=== PATIENT | female | born 1980 | race Caucasian/White ===

== ENCOUNTER → 2018-12-11 06:38 | Outpatient (CLI) | payer OTHER, SELFPAY ==
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
--- NOTE | 2018-12-14 14:47 | EEG ---
- Electroencephalogram Date of service 12/11/2018 History EEG is being done in this 38 yr F to rule out seizures EEG Description: This is an 18 channel EEG with 10-20 lead placement system. Bipolar montages, and Referential montages were reviewed. Photic stimulation and Hyperventilation were performed. The posterior dominant rhythm is 9 HZ synchronous, symmetric, reacting to eye opening and closing. Photo stimulation elicited normal driving response but no abnormal photoparoxysmal response, Hyperventilation did not elicit any abnormal photoparoxysmal response. Sleep was identified. There is no abnormal background slowing noted. There was no epileptiform discharges or electrographic seizures noted during this recording. EEG Interpretation This is a normal awake and asleep EEG. There is no epileptiform discharges or electrographic seizures noted during the record.
== END ==
PROVIDERS: Family Provider Nurse Practitioner; PCP Nurse Practitioner; Referring Provider Nurse Practitioner; Visit Provider Nurse Practitioner
DX: S09.90XA Unspecified injury of head, initial encounter (principal); X58.XXXA Exposure to other specified factors, initial encounter; Y93.9 Activity, unspecified; Y92.9 Unspecified place or not applicable; Y99.9 Unspecified external cause status
CPT/HCPCS: 70450; 95819

== ENCOUNTER → 2019-01-07 12:42 | Outpatient (CLI) | payer OTHER, SELFPAY ==
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
== END ==
PROVIDERS: Family Provider Nurse Practitioner; PCP Nurse Practitioner; Referring Provider Psychiatry & Neurology Neurology; Visit Provider Psychiatry & Neurology Neurology
DX: M54.2 Cervicalgia (principal)
CPT/HCPCS: 72052

== ENCOUNTER → 2019-01-20 15:47 | Outpatient (CLI) | payer OTHER, SELFPAY ==
--- NOTE | 2019-01-20 15:51 | CT_ITS ---
STUDY: CTA OF THE BRAIN REASON FOR EXAM: Female, 39 years old. Vertigo and memory loss RADIATION DOSAGE (If Supplied By Facility): CTDIvol = ( 26.01 ) mGy, DLP = ( 1129.69 ) mGycm TECHNIQUE: CT angiography was performed with a multi-detector CT scanner. Data acquisition was obtained from the skull base through the vertex following intravenous administration of 75mL IV Isovue 370. MIP images were reconstructed from the axial data set. Post-processing of the angiographic images was performed, with multiplanar reformation and 3D reconstruction. Individualized dose optimization techniques were used for this CT. COMPARISON: None. FINDINGS: Normal bilateral petrous carotid arteries. Normal right cavernous carotid artery with a normal supraclinoid bifurcation. Normal left cavernous carotid artery with a normal supraclinoid bifurcation. Normal right A1 segments of the anterior cerebral artery. Normal left A1 segments of the anterior cerebral artery. Normal intact anterior communicating artery (ACOM). Normal bilateral A2 segments of the anterior cerebral arteries. Normal right M1 and M2 segments of the middle cerebral arteries, with a normal M1 bifurcation. Normal left M1 and M2 segments of the middle cerebral arteries, with a normal M1 bifurcation. Posterior communicating arteries are not visualized consistent with normal variant Normal bilateral vertebral arteries. Normal basilar artery with a normal basilar bifurcation. The visualized bilateral superior cerebellar (SCA) arteries are normal. Normal bilateral P1, P2 and visualized P3 segments of the posterior cerebral arteries. There is no demonstrated aneurysm of the [place]. There is no demonstrated abnormality of the visualized brain. CT/CTA Head W/WO Contrast IMPRESSION: Normal [place] without a demonstrated aneurysm or hemodynamically significant stenosis. Electronically Signed: Jose Fairbanks MD at 16:58 EDT , Service support ,
== END ==
PROVIDERS: Family Provider Nurse Practitioner; PCP Nurse Practitioner; Referring Provider Psychiatry & Neurology Neurology; Visit Provider Psychiatry & Neurology Neurology
DX: R42 Dizziness and giddiness (principal)
CPT/HCPCS: 70496; Q9967

== ENCOUNTER 2019-01-27 14:00 | Outpatient (RCR) | payer OTHER, SELFPAY ==
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
--- NOTE | 2019-03-23 18:32 | HP.PTDCNRP_ITS ---
HP - Discharge Summary (1) - Patient Information JACQUES JENSEN was seen in my office for initial evaluation on 01/19/19. The following Plan of Care was established for this patient: Initial Frequency: 1-2x /Week Initial Duration: 4 Weeks - Anticipated Interventions Patient/Client Instruction: Educate patient on: Condition, Plan of Care For the Purpose of:: To increase tolerance to activity/condition/position, To i mprove ability of physical actions for home/community/work/leisure Therapeutic Exercise to Include: Strength training, Postural training, Passive ROM, Active ROM For the Purpose of:: To increase tolerance to activity/condition/position, To improve ability of physical actions for home/community/work/leisure Manual Therapy Techniques to Include: Soft tissue mobilization For the Purpose of:: To increase tolerance to activity/condition/position This patient was last seen in our office 01/27/19. Pertinent comments regarding their Physical therapy will appear below: Pt seen two visits and reportedly 50% improved. She cancelled her next adn reest of her visits and neglected to reschedule. at this point, it has been nearly two months adn I will discontinue due to nonattendance. At this point I will be discontinuing this patient from physical therapy. I would be happy to see this patient again in the future if found appropriate by the physician. Thank you! Herbert Martinez, DPT, OCS, CSCS
== END 2019-01-27 19:00 | disposition home or self-care (01) ==
LOC: PT 14:00
PROVIDERS: Family Provider Nurse Practitioner; PCP Nurse Practitioner; Visit Provider Psychiatry & Neurology Neurology
DX: M54.2 Cervicalgia (principal); R42 Dizziness and giddiness
CPT/HCPCS: 97110; 97162; 97530

== ENCOUNTER → 2019-02-23 14:38 | Outpatient (CLI) | payer OTHER, SELFPAY ==
--- NOTE | 2019-02-23 14:41 | US_ITS ---
STUDY: ULTRASOUND OF THE FEMALE PELVIS - COMPLETE REASON FOR EXAM: Female, 39 years old. Elevated CA 125. LMP: January 22, 2019. TECHNIQUE: Transabdominal and Transvaginal TECHNICAL QUALITY: Adequate. COMPARISON: None. FINDINGS: The uterus is anteverted and is in a midline position. The uterus measures 8.6 x 5.4 x 4.3 cm. There is a Nabothian cyst of the cervix. The endometrium measures 16 mm in thickness, and is hyperechoic. There is no demonstrated endometrial mass. There is a 1.5 x 1.4 x 0.7 predominantly cystic mass in the anterior fundal wall. Question necrotic fibroid. I.U.D. - The patient does not have an I.U.D. 3.8 x 2.7 x 1.5 The right ovary measures 3 cm. There is no right ovarian cyst or ovarian mass. There is no visualized right adnexal mass or complex lesion. There is normal arterial and normal venous vascularity. The left ovary is visualized. The left ovary measures 3.8 x 2.6 x 2.2 cm. There are multiple follicles of the left ovary without a dominant cyst. There is no visualized left adnexal mass or complex lesion. There is prominent venous structures in the left adnexa. Question pelvic congestion. There is no fluid in the cul-de-sac. Urinary bladder demonstrates a prevoid volume of 147 cm and is grossly unremarkable. US/Pelvic (Non ) IMPRESSION: 1. Cystic structure in the anterior fundal wall. Question necrotic fibroid. 2. Normal ovaries. 3. Prominent venous structures in the left adnexa. Question vascular congestion. Electronically Signed: Ole Connolly DO at 19:40 EDT Tel [phone], Service support ,
--- NOTE | 2019-02-23 14:41 | US_ITS ---
STUDY: ABDOMINAL ULTRASOUND REASON FOR EXAM: Female, 39 years old. Liver lesions seen on CT from outside facility. Elevated CEA 125. TECHNIQUE: Transabdominal ultrasound was performed with real-time and static martinez scale imaging. TECHNICAL QUALITY: Adequate. COMPARISON: None. FINDINGS: Liver: The liver measures 14.2 cm. There is normal echogenicity of the liver. The bile ducts are within normal limits. There is hepatic color flow. The direction of portal flow is hepatopetal. There is no demonstrated mass lesion. Gallbladder: Normal distended gallbladder. The gallbladder wall measures 2.2 mm. There is a negative sonographic Carpio's sign. There is no pericholecystic fluid. There are no gallstones. Common Bile Duct (C.B.D.): The common bile duct measures 3.4 mm. Pancreas: Normal size of the head, body and tail of the pancreas. There is normal echogenicity of the pancreas. There is no demonstrated pancreatic mass or cyst. Spleen: Normal size of the spleen. The spleen measures 9.7 cm. Right Kidney: Normal size of the right kidney. The right kidney measures 10.5 cm. Normal renal cortex. The right cortex measures 1.3 cm. There is no demonstrated renal mass or cyst. There is no right hydronephrosis. Left Kidney: Normal size of the left kidney. The left kidney measures 11 point cm. Normal renal cortex. The left cortex measures 1.6 cm. There is no demonstrated renal mass or cyst. There is no left hydronephrosis. Aorta: No abdominal aortic aneurysm. I.V.C.: The IVC is patent. There is no ascites. US/Abdomen Complete IMPRESSION: 1. No visualized intrahepatic lesions. 2. Normal abdominal ultrasound. Electronically Signed: Ole Connolly DO at 16:27 EDT Tel [phone], Service support ,
--- NOTE | 2019-02-23 18:32 | US_ITS ---
STUDY: ULTRASOUND OF THE FEMALE PELVIS - COMPLETE REASON FOR EXAM: Female, 39 years old. Elevated CA 125. LMP: January 22, 2019. TECHNIQUE: Transabdominal and Transvaginal TECHNICAL QUALITY: Adequate. COMPARISON: None. FINDINGS: The uterus is anteverted and is in a midline position. The uterus measures 8.6 x 5.4 x 4.3 cm. There is a Nabothian cyst of the cervix. The endometrium measures 16 mm in thickness, and is hyperechoic. There is no demonstrated endometrial mass. There is a 1.5 x 1.4 x 0.7 predominantly cystic mass in the anterior fundal wall. Question necrotic fibroid. I.U.D. - The patient does not have an I.U.D. 3.8 x 2.7 x 1.5 The right ovary measures 3 cm. There is no right ovarian cyst or ovarian mass. There is no visualized right adnexal mass or complex lesion. There is normal arterial and normal venous vascularity. The left ovary is visualized. The left ovary measures 3.8 x 2.6 x 2.2 cm. There are multiple follicles of the left ovary without a dominant cyst. There is no visualized left adnexal mass or complex lesion. There is prominent venous structures in the left adnexa. Question pelvic congestion. There is no fluid in the cul-de-sac. Urinary bladder demonstrates a prevoid volume of 147 cm and is grossly unremarkable. US/Transvaginal Non- IMPRESSION: 1. Cystic structure in the anterior fundal wall. Question necrotic fibroid. 2. Normal ovaries. 3. Prominent venous structures in the left adnexa. Question vascular congestion. Electronically Signed: Ole Connolly DO at 19:40 EDT Tel [phone], Service support ,
== END ==
PROVIDERS: Family Provider Nurse Practitioner; PCP Nurse Practitioner; Referring Provider Nurse Practitioner; Visit Provider Nurse Practitioner
DX: R97.1 Elevated cancer antigen 125 [CA 125] (principal)
CPT/HCPCS: 76700; 76830; 76856; 93976

== ENCOUNTER → 2019-03-04 15:37 | Outpatient (CLI) | payer OTHER, SELFPAY ==
--- NOTE | 2019-03-04 15:39 | CT_ITS ---
STUDY: CT ABDOMEN AND PELVIS WITH CONTRAST REASON FOR EXAM: Female, 39 years old. ELEV CA ANTIGEN RADIATION DOSAGE (If Supplied By Facility): CTDIvol = ( 15.07 ) mGy, DLP = ( 613.69 ) mGycm TECHNIQUE: Transaxial images were obtained from the dome of the diaphragm to the symphysis pubis without oral contrast. Oral and amp;amp; IV Readi-CAT and amp;amp; 100mL Isovue-370 100 was administered. Sagittal and coronal images were reconstructed. Individualized dose optimization techniques were used for this CT. COMPARISON: None. FINDINGS: The visualized lung bases are unremarkable. The visualized portions of the heart are within normal limits. There are small hypoattenuation lesions in the liver largest measures 5 mm is near the dome in segment #8 image #11 most likely represent benign cysts. Normal gallbladder and extrahepatic biliary system. Normal spleen. Normal pancreas. Normal bilateral adrenal glands. Normal right kidney. Normal left kidney. Normal visualized stomach. Normal small intestine. Normal colon. There is non-visualization of the appendix. Normal abdominal aorta. Normal inferior vena cava. Normal retroperitoneum. Normal urinary bladder. There is a hypoattenuation lesion at the anterior aspect of uterus measures 1.6 cm most likely represent a fibroid. The ovaries are grossly normal in size. There is a small umbilical hernia containing fat. Normal osseous structures. CT/Abdomen/Pelvis WITH Contrast IMPRESSION: There is a hypoattenuation lesion at the anterior aspect of uterus measures 1.6 cm most likely represent a fibroid. The ovaries are grossly normal in size. There are small hypoattenuation lesions in the liver largest measures 5 mm is near the dome in segment #8 image #11 most likely represent benign cysts Electronically Signed: Fransico Vasquez, at 2:45 EDT Tel , Service support ,
== END ==
PROVIDERS: Family Provider Nurse Practitioner; PCP Nurse Practitioner; Referring Provider Nurse Practitioner; Visit Provider Nurse Practitioner
DX: R97.1 Elevated cancer antigen 125 [CA 125] (principal)
CPT/HCPCS: 74177; Q9967

== ENCOUNTER → 2019-03-29 08:21 | Outpatient (CLI) | payer OTHER, SELFPAY ==
--- NOTE | 2019-03-29 08:25 | RAD_ITS ---
STUDY: X-RAY CHEST REASON FOR EXAM: Female, 39 years old. Cough and illness x3 weeks TECHNIQUE: PA and lateral views of the chest. COMPARISON: None. FINDINGS: Joao bar is identified The lungs are clear and expanded. There is no demonstrated pleural abnormality. Normal size heart. Normal mediastinum and clayton. Normal visualized pulmonary arteries. Normal visualized aortic arch and descending thoracic aorta. Normal visualized thoracic spine. Normal visualized ribs, clavicles, and shoulders. There is no demonstrated abnormality of the visualized soft tissue structures of the upper abdomen. RAD/Chest PA and Lateral IMPRESSION: Normal x-ray examination of the chest. Electronically Signed: Ger Aviles DO at 9:02 EST Tel , Service support ,
== END ==
PROVIDERS: Family Provider Nurse Practitioner; PCP Nurse Practitioner; Referring Provider Nurse Practitioner; Visit Provider Nurse Practitioner
DX: R05 Cough (principal)
CPT/HCPCS: 71046

== ENCOUNTER 2020-05-23 08:00 | Outpatient (RCR) | payer OTHER, SELFPAY | END 2020-05-23 23:59 | LOC: IMMUN 08:00 | PROVIDERS: PCP Nurse Practitioner; Visit Provider Family Medicine | DX: Z23 Encounter for immunization (principal) | CPT/HCPCS: 0011A; 0012A; 91301 ==

== ENCOUNTER → 2020-10-27 15:45 | Outpatient (CLI) | payer OTHER, SELFPAY ==
--- NOTE | 2020-10-27 15:47 | RAD_ITS ---
STUDY: X-RAY CHEST REASON FOR EXAM: Female, 40 years old. COUGH TECHNIQUE: PA and lateral views of the chest. COMPARISON: OCTOBER 16, 2020 FINDINGS: Surgical clips are present in the left lower chest region. There is hyperinflation of the lungs consistent with chronic obstructive lung disease (COPD). No visualized consolidation. There is no demonstrated pleural abnormality. Normal size heart. Normal mediastinum and clayton. Normal visualized pulmonary arteries. Normal visualized aortic arch and descending thoracic aorta. There is a dextroscoliosis of the thoracic spine. Normal visualized ribs, clavicles, and shoulders. There is no demonstrated abnormality of the visualized soft tissue structures of the upper abdomen. RAD/Chest PA and Lateral IMPRESSION: COPD Electronically Signed: Nam Parker MD at 17:10 EDT , Service support ,
== END ==
LOC: MTRAD 15:46
PROVIDERS: PCP Nurse Practitioner; Referring Provider Internal Medicine; Visit Provider Internal Medicine
DX: R05 Cough (principal)
CPT/HCPCS: 71046

== ENCOUNTER → 2020-12-06 08:47 | Outpatient (CLI) | payer OTHER, SELFPAY ==
--- NOTE | 2020-12-06 08:51 | BI_ITS ---
MAMMOGRAPHY - BILATERAL DIAGNOSTIC REASON FOR EXAM: Female, 40 years old. LUMP PERTINENT HISTORY: Non-contributory. TECHNIQUE: Digital examination. Mediolateral oblique (MLO) and craniocaudad (CC) views of both breasts were obtained. CAD: COMPARISON: None. FINDINGS: Breast Composition: Dense There is an area of increased density noted involving the medial aspect of the right breast directly adherent to the right chest wall at the site of the palpable mass noted by the patient. This is best seen on the craniocaudal view and is difficult to visualize on the MLO view. Because of this density in the patient''s palpable mass lesion a targeted right breast ultrasound will be performed for additional evaluation. The left breast is normal. BI/DIAG MAMM W/CAD, BILAT IMPRESSION: Questionable masslike density noted in the superior medial aspect of the right breast site of the patient''s palpable abnormality and a targeted right breast ultrasound will be performed for further evaluation. ASSESSMENT CATEGORY: BIRADS Category 0: Incomplete. Need additional imaging evaluation. A letter regarding these results will be sent to the patient by the facility within 30 days. FOLLOW UP RECOMMENDATION: Ultrasound Recommended. (I) Approximately 10% of breast cancers are not detected by mammography. A normal mammogram should not delay biopsy of a clinically suspicious abnormality. Electronically Signed: Drew Henderson DO at 13:02 EDT Tel , Service support ,
--- NOTE | 2020-12-06 08:51 | US_ITS ---
STUDY: ULTRASOUND BREAST - RIGHT REASON FOR EXAM: Female, 40 years old. TECHNIQUE: Axial and longitudinal images of the RIGHT breast were performed with a high resolution ultrasound transducer. # OF IMAGES: [id number] COMPARISON: Recent mammogram obtained on 12/06/2020 FINDINGS: RIGHT Breast: There is a lesion in the superior medial quadrant. The lesion measures 2.4 x 2.0 x 1.5 cm in size. Clock notation: 1 o''clock position. Distance from nipple: 360 cm. This mass lesion in the right breast has a somewhat lobular contour and is solid and hypoechoic. This is of uncertain etiology and could represent a fibroadenoma, however, because it is a solid lobular nodular density underlying carcinoma cannot be completely excluded. For this reason, an ultrasound directed right breast biopsy is recommended for further evaluation. Incidentally noted is a small cyst measuring 1.2 x 0.8 x 0.6 cm in size at the 2 o''clock position of the deep right breast adjacent to the chest wall. This cyst has good through transmission and is anechoic. US/Breast Limited Unilateral IMPRESSION: A 2.4 x 2 x 1.5 cm solid lobular mass lesion is noted superior medial right breast of uncertain etiology. A fibroadenoma versus cancer or other diagnostic possibilities and an ultrasound directed right breast biopsy is recommended for further evaluation ASSESSMENT CATEGORY: BIRADS Category 4B: Moderate suspicion for malignancy. A letter regarding these results will be sent to the patient by the facility within 30 days. Electronically Signed: Drew Henderson DO at 12:56 EDT Tel , Service support ,
== END ==
PROVIDERS: PCP Nurse Practitioner; Referring Provider Nurse Practitioner; Visit Provider Nurse Practitioner
DX: N63.10 Unspecified lump in the right breast, unspecified quadrant (principal)
CPT/HCPCS: 76642; 77062; 77066; G0279

== ENCOUNTER → 2020-12-14 07:49 | Outpatient (CLI) | payer OTHER, SELFPAY ==
[2020-12-14 07:58] VITALS: BP 130/70; PULSE 80; RESP 16; TEMP 36.7; O2SAT 99; BMI 20.2
[2020-12-14 09:03] VITALS: BP 123/67; PULSE 82; RESP 16; TEMP 36.6; O2SAT 100
[2020-12-14 09:13] VITALS: BP 122/70; PULSE 72; RESP 16; TEMP 36.4; O2SAT 100
--- NOTE | 2020-12-14 12:30 | FLU_PTH ---
PATIENT: JACQUES JENSEN LOC: [facility] U#:[id number] AGE/SX: 45/F ROOM: RE12/14/[address]: Dr. Ramirez Goel MD : 1980 BED: DIS: SPEC #: [id number] RECD: 12/14/20 12:40 STATUS: JANEY RENash #: [id number] CARMELINA: 12/14/20 12:[address]: Ramirez Goel DEPT: CYTOLOGY RECD BY: Monik Moore ENTERED: 12/14/20 13:25 SP TYPE: Fluid OTHR DR: Georgie Rubio, DISPATCHER ELECTRIC POWER-C Tissues: Right breast, NOS Procedures: Special Stain Group II Surgery Specimen Level IV Cytospin Fluid HEADER OPERATION: Right breast PRE-OP DIAGNOSIS: Right breast lesion TISSUE SUBMITTED: Right breast 2 o?clock lesion DIAGNOSIS CYTOLOGY Fine needle aspiration, right breast lesion at 2 o?clock (cytospin and cell block): Negative for malignant cells. See comment. AM:nicole 12/15/2020 COMMENT Rare macrophages are present. Clinical correlation is suggested. CYTOLOGY STUDY Slides are reviewed. CYTOLOGY GROSS Received is 3 ml of hidalgo, cloudy fluid labeled with the patient's name and and designated per the requisition as right breast 2 o'clock lesion. Submitted for cytology preparation including cell block. / niocle 12/14/2020 TC:5 CPT: 76821, 08538
--- NOTE | 2020-12-14 12:30 | US_ITS ---
ULTRASOUND GUIDED CORE BIOPSY REASON FOR EXAM: Female, 40 years old. Right breast mass. COMPARISON: Comparison is made with prior ultrasound of the right breast dated 12/06/2020. TECHNIQUE: (All elements of maximal sterile barrier technique followed, including US elements as applicable) Multiple core biopsies of the 2.3 cm x 1.9 cm x 1.7 cm complex solid and cystic mass at the 2 o''clock position of the breast was performed by the surgeon. US/Cyst Puncture IMPRESSION: Ultrasound guided core biopsy of a mass in the RIGHT breast at the 2 o''clock position of the breast without complication. Electronically Signed: Nelson Stallings MD at 19:49 EDT , Service support ,
--- NOTE | 2020-12-14 14:07 | PCM.HP.BLA ---
History and Physical Surgery 10-year-old female with a palpable right breast mass. She has noted that for about 2 weeks. She denies any nipple discharge. Mammogram and ultrasound showed a 2.4 x 2 x 1.5 solid lobulated mass lesion in the superior medial right breast of uncertain etiology. Given the BI-RADS Category 4B. Past medical history significant for this fibrinogen anemia mitral valve disorder acute pericarditis Current medications Cytotec 200 mg tabs Allergies cryoprecipitate Physical exam HEENT: Normocephalic atraumatic Lungs: Clear to auscultation Cardiovascular: Regular rate and rhythm Breast palpable area of the right breast medial aspect identified. Assessment & Plan Assessment/Plan (1) Abnormal mammogram of right breast: PLAN: Plan will be for an ultrasound-guided needle core biopsy of this lesion.
--- NOTE | 2020-12-14 14:08 | OP.PCM_ITS ---
Problems Associated Problem List Diagnoses (1) Abnormal mammogram of right breast: Report of Operation Date of Procedure: 12/14/20 Pre-Operative Diagnosis: Abnormal mammogram right breast Post-Operative Diagnosis: Same Surgery/Procedure Performed:: Ultrasound-guided cyst aspiration of abnormal mammogram to right breast Surgeon: Ramirez Goel rail express clerk: None Type of Anesthesia: Local Description of Procedure: Patient was brought into the ultrasound unit. Right breast was ultrasound. Complex cyst was identified. Prepped the breast with chlorhexidine. I injected 1% lidocaine plain. Under ultrasound guidance I aspirated out a complex cyst completely the cyst completely disappeared. Contents of the cyst were sent for cytology. Sterile dressings were applied. Patient tolerated the procedure well. Admit VTE Documentation VTE Present on Admission: No VTE Mechan Device Prophylaxis: None VTE Pharm Prophylaxis ordered?: No Reason prophylaxis not ordered:: Treatment Not Indicated
== END ==
PROVIDERS: PCP Nurse Practitioner; Referring Provider Surgery; Visit Provider Surgery
DX: N63.12 Unspecified lump in the right breast, upper inner quadrant (principal); D68.2 Hereditary deficiency of other clotting factors
CPT/HCPCS: 19000; 36415; 36430; 76942; 86850; 86900; 86901; 86920; 86922; 86965; 88108; 88305; 88313; J7040; P9012; A4216

== ENCOUNTER 2021-08-02 08:50 | Outpatient (CLI) | payer OTHER, SELFPAY ==
--- NOTE | 2021-08-02 08:54 | US_ITS ---
STUDY: ABDOMINAL ULTRASOUND - RIGHT UPPER QUADRANT REASON FOR VISIT: Female, 41 years old LIVER LESION TECHNIQUE: Ultrasound evaluation of the right upper quadrant was performed with real-time and static martinez-scale imaging. TECHNICAL QUALITY: Adequate. COMPARISON: Comparison is made with prior study dated 02/23/2019. FINDINGS: Liver: The liver measures 16.9 cm. There is normal echogenicity of the liver. The bile ducts are within normal limits. There is hepatic color flow. The direction of portal flow is hepatopetal. There is an 8mm by 8mm by 8 mm cyst in the inferior aspect of the right lobe of the liver. Gallbladder: Normal distended gallbladder. The gallbladder wall measures 1.7 mm. There is a negative sonographic Carpio''s sign. There is no pericholecystic fluid. There are no gallstones. Common Bile Duct (C.B.D.): The common bile duct measures 4.0 mm. Pancreas: Normal size of the head, body and tail of the pancreas. There is normal echogenicity of the pancreas. There is no demonstrated pancreatic mass or cyst. Right Kidney: Normal size of the right kidney. The right kidney measures 11 cm x 4.8 cm x 4.9 cm. Normal renal cortex. The right cortex measures 1.3 cm. There is no demonstrated renal mass or cyst. There is no right hydronephrosis. US/Liver IMPRESSION: 8 mm x 8 mm x 8 mm cyst in the inferior aspect of the right lobe of the liver. Electronically Signed: Nelson Stallings MD at 10:11 EDT ,
--- NOTE | 2021-08-02 09:27 | ECHOD_ITS ---
Reason For Study: acute pericardial effusion, increased palps. Procedure This was a 2D Doppler, Color Flow transthoracic echocardiogram. Exam performed in department. Left Ventricle Normal LV size. The estimated ejection fraction is 55-60 %. No evidence for diastolic dysfunction. No regional wall motion abnormalities noted. Right Ventricle Normal RV size. Normal systolic function. Atria Normal left atrium. Normal right atrium. No doppler evidence for ASD. Mitral Valve There is no mitral valve stenosis. Trivial mitral valve insufficiency. Tricuspid Valve There is no tricuspid stenosis. Trivial tricuspid valve insufficiency. Pulmonary artery systolic pressure is 20 mmHg. Aortic Valve Trisinus/trileaflet aortic valve. There is no aortic stenosis. No aortic valve insufficiency. Pulmonic Valve There is no pulmonic valvular stenosis. No pulmonic valve insufficiency. Great Vessels Normal aortic root. Pericardium/Pleural Trivial pericardial effusion. MMode/2D Measurements & Calculations LVIDd: 4.4 cm IVSd: 0.78 cm Ao root diam: 2.6 cm LVIDs: 3.2 cm LVPWd: 0.95 cm RVDd: 2.4 cm FS: 28.1 % LAV(MOD-bp): 45.8 ml LA A4 area: 17.9 cm2 LA dimension(2D): 3.3 cm LAV(MOD-bp) Indexed: 28.6 ml/m2 LAV(MOD-sp2): 42.3 ml LAV(MOD-sp4): 50.7 ml RA A4 area: 8.7 cm2 Time Measurements MV dec time: 0.17 sec Doppler Measurements & Calculations MV E max jason: 99.7 cm/sec Lat Peak E' Jason: 11.7 cm/sec Med Peak E' Jason: 9.8 cm/sec MV A max jason: 47.3 cm/sec E/E' lat: 8.5 E/E' med: 10.2 MV E/A: 2.1 Ao V2 max: 121.6 cm/sec LV V1 max: 94.2 cm/sec PA V2 max: 79.6 cm/sec Ao max P.9 mmHg LV V1 max P.6 mmHg TR max jason: 240.5 cm/sec TR max P.1 mmHg ECHO/Echo Complete Interpretation Summary The estimated ejection fraction is 55-60 %. No evidence for diastolic dysfunction. Trivial mitral valve insufficiency. Trivial pericardial effusion. Ordering Physician: Karen Phoenix Referring Physician: Karen Phoenix Performed By: Alba Grimm RDCS, RVT
== END 2021-08-02 23:59 | disposition home or self-care (01) ==
LOC: US 08:52
PROVIDERS: PCP Nurse Practitioner; Referring Provider Internal Medicine; Visit Provider Internal Medicine
DX: K76.9 Liver disease, unspecified (principal); I30.9 Acute pericarditis, unspecified
CPT/HCPCS: 76705; 93306

== ENCOUNTER 2021-08-22 07:58 | Outpatient (CLI) | payer OTHER, SELFPAY | END 2021-08-22 23:59 | disposition home or self-care (01) | LOC: PSN 07:58 | PROVIDERS: PCP Nurse Practitioner; Visit Provider Internal Medicine | DX: R00.2 Palpitations (principal) | CPT/HCPCS: 93225; 93226 ==

== ENCOUNTER → 2022-04-11 | Outpatient (CLI) | payer OTHER, SELFPAY ==
--- NOTE | 2022-04-11 09:24 | BI_ITS ---
MAMMOGRAPHY - BILATERAL DIAGNOSTIC REASON FOR EXAM: Female, 42 years old. One-week history of left breast lump. PERTINENT HISTORY: Non-contributory. TECHNIQUE: Digital bilateral breast nemesio (3D mammographic acquisition) in the CC and MLO projections. 2-D mediolateral oblique (MLO) and craniocaudad (CC) views of both breasts were obtained. CAD: Full Field Digital Mammography with Computer Added Detection was performed. COMPARISON: Comparison is made with prior examination in 12/06/2020. FINDINGS: Breast Composition: The breasts are extremely dense, which lowers the sensitivity of mammography. There are no dominant masses or suspicious calcifications. No other significant abnormalities are identified. There has been no significant change since the prior study. BI/DIAG MAMM W/CAD, BILAT IMPRESSION: Stable bilateral diagnostic mammogram. One year follow-up recommended. (A) ASSESSMENT CATEGORY: BIRADS Category 1: Negative. A letter regarding these results will be sent to the patient by the facility within 30 days. Approximately 10% of breast cancers are not detected by mammography. A normal mammogram should not delay biopsy of a clinically suspicious abnormality. Electronically Signed: Nelson Stallings MD at 10:20 EST ,
--- NOTE | 2022-04-11 09:25 | US_ITS ---
STUDY: ULTRASOUND BREAST - LEFT REASON FOR EXAM: Female, 42 years old. Palpable lump left breast. TECHNIQUE: Axial and longitudinal images of the LEFT breast were performed with a high resolution ultrasound transducer. # OF IMAGES: 13 COMPARISON: Comparison is made with prior mammogram done earlier today. FINDINGS: LEFT Breast: The upper half of the left breast was examined with ultrasound. There is dense fibroglandular tissue. There is a 1.5 cm x 1.2 cm x 0.8 cm cyst at the 11 o''clock position of the breast at 7 cm from the nipple. There is also evidence of a 9 mm x 9 mm x 6 mm cyst at the 10 o''clock position breast a 7 cm from the nipple. US/Breast Limited Unilateral IMPRESSION: Small cysts are seen in the upper inner quadrant of the left breast. ASSESSMENT CATEGORY: BIRADS Category 2: Benign. A letter regarding these results will be sent to the patient by the facility within 30 days. Electronically Signed: Nelson Stallings MD at 12:21 EST ,
== END | disposition home or self-care (01) ==
LOC: OPBI 09:17
PROVIDERS: PCP Nurse Practitioner; Referring Provider Obstetrics & Gynecology; Visit Provider Obstetrics & Gynecology
DX: Z12.31 Encounter for screening mammogram for malignant neoplasm of breast (principal); N60.02 Solitary cyst of left breast
CPT/HCPCS: 76642; 77062; 77066; G0279

== ENCOUNTER → 2022-04-18 | Outpatient (CLI) | payer OTHER, SELFPAY ==
--- NOTE | 2022-04-18 11:21 | US_ITS ---
STUDY: ABDOMINAL ULTRASOUND - RIGHT UPPER QUADRANT REASON FOR VISIT: Female, 42 years old LIVER LESION TECHNIQUE: Ultrasound evaluation of the right upper quadrant was performed with real-time and static martinez-scale imaging. TECHNICAL QUALITY: Adequate. COMPARISON: Comparison is made with prior study dated 08/02/2021. FINDINGS: Liver: The liver measures 16.1 cm. There is normal echogenicity of the liver. The bile ducts are within normal limits. There is hepatic color flow. The direction of portal flow is hepatopetal. There is a 9 mm x 9 mm x 8 mm cyst in the right lobe of the liver. This is unchanged. Gallbladder: Normal distended gallbladder. The gallbladder wall measures 2 mm. There is a negative sonographic Carpio''s sign. There is no pericholecystic fluid. There are no gallstones. Common Bile Duct (C.B.D.): The common bile duct measures 3 mm. Pancreas: Normal size of the head, body and tail of the pancreas. There is normal echogenicity of the pancreas. There is no demonstrated pancreatic mass or cyst. Right Kidney: Normal size of the right kidney. The right kidney measures 10.5 cm x 4.8 cm x 5.3 cm. Normal renal cortex. The right cortex measures 2.2 cm. There is no demonstrated renal mass or cyst. There is no right hydronephrosis. US/Liver IMPRESSION: Stable 9 mm x 9 mm x 8 mm cyst in the inferior right lobe of the liver. Electronically Signed: Nelson Stallings MD at 15:25 EST ,
== END | disposition home or self-care (01) ==
LOC: US 11:20
PROVIDERS: PCP Internal Medicine; Referring Provider Internal Medicine; Visit Provider Internal Medicine
DX: K76.9 Liver disease, unspecified (principal)
CPT/HCPCS: 76705

== ENCOUNTER → 2023-06-05 | Outpatient (CLI) | payer OTHER, SELFPAY ==
--- NOTE | 2023-06-05 08:49 | BI_ITS ---
MAMMOGRAPHY - BILATERAL SCREENING REASON FOR EXAM: Female, 43 years old. Routine annual screening examination. PERTINENT HISTORY: Non-contributory. TECHNIQUE: Digital bilateral breast pat (3D mammographic acquisition) in the CC and MLO projections. 2-D mediolateral oblique (MLO) and craniocaudad (CC) views of both breasts were obtained. CAD: Full Field Digital Mammography with Computer Added Detection was performed. COMPARISON: Comparison is made with prior study dated April 11, 2022 and December 06, 2020. FINDINGS: Breast Composition: The breasts are extremely dense, which lowers the sensitivity of mammography. There are no dominant masses or suspicious calcifications. Stable bilateral fat-containing axillary lymph nodes. No other significant abnormalities are identified. There has been no significant change since the prior study. BI/SCRN MAMM (CAD)W/PAT BILAT IMPRESSION: Stable bilateral screening mammogram. Yearly follow-up mammogram recommended. (A) ASSESSMENT CATEGORY: BIRADS Category 2: Benign. A letter regarding these results will be sent to the patient by the facility within 30 days. Approximately 10% of breast cancers are not detected by mammography. A normal mammogram should not delay biopsy of a clinically suspicious abnormality. [id number] Electronically Signed: Nelson Stallings MD at 10:51 EST ,
--- NOTE | 2023-06-05 08:50 | US_ITS ---
STUDY: ULTRASOUND OF THE FEMALE PELVIS - COMPLETE REASON FOR EXAM: Female, 43 years old. PELVIC PAIN LMP: May 05, 2023. TECHNIQUE: Transvaginal TECHNICAL QUALITY: Adequate. COMPARISON: Comparison is made with prior study February 23, 2019. FINDINGS: The uterus is anteverted and is in a midline position. The uterus measures 7.6 cm x 4.7 cm x 4.1 cm. There is a Nabothian cyst of the cervix. The endometrium measures 3 mm in thickness, and is hyperechoic. There is a 1.8 cm x 1.4 cm x 1.3 cm cystic structure within the endometrium. This may represent possible polyp. There is no demonstrated myometrial mass. I.U.D. - The patient does not have an I.U.D. The right ovary is visualized. The right ovary measures 2.1 cm x 2.1 cm x 2.8 cm. There is no right ovarian cyst or ovarian mass. There is no visualized right adnexal mass or complex lesion. There is normal arterial and normal venous vascularity. The left ovary is visualized. The left ovary measures 3.2 cm x 3 cm x 1.8 cm. There is no left ovarian cyst or ovarian mass. There is no visualized left adnexal mass or complex lesion. There is normal arterial and normal venous vascularity. There is minimal fluid in the cul-de-sac. US/Transvaginal Non- IMPRESSION: Cystic structure within the endometrium. This may represent a polyp. Clinical correlation is recommended. Electronically Signed: Nelson Stallings MD at 14:13 EST ,
== END | disposition home or self-care (01) ==
LOC: US 08:48
PROVIDERS: PCP Internal Medicine; Referring Provider Obstetrics & Gynecology; Visit Provider Obstetrics & Gynecology
DX: Z12.31 Encounter for screening mammogram for malignant neoplasm of breast (principal); R10.2 Pelvic and perineal pain
CPT/HCPCS: 76830; 77063; 77067

== ENCOUNTER → 2024-07-05 | Outpatient (CLI) | payer OTHER, SELFPAY ==
--- NOTE | 2024-07-05 08:02 | BI_ITS ---
PROCEDURE: SCRN MAMM (CAD)W/PAT BILAT REASON FOR EXAM: F, Age 44 y/o, no family history. Annual follow-up. TECHNIQUE: Bilateral screening digital breast tomosynthesis with 2D and 3D images. Computer aided detection. COMPARISON: Prior exam(s) dating back to June 05, 2023.. FINDINGS: The breasts are extremely dense which lowers the sensitivity of mammography. Stable examination. Stable fat containing bilateral axillary lymph nodes. No suspicious masses, areas of developing architectural distortion, or suspicious calcifications. BI/SCRN MAMM (CAD)W/PAT BILAT IMPRESSION: BI-RADS 2: BENIGN. RECOMMEND ANNUAL MAMMOGRAPHIC SCREENING. Follow-up code: Routine Follow-up The patient will be notified of the results by letter. Reading Location: [id number]
--- NOTE | 2024-07-05 08:02 | US_ITS ---
PROCEDURE: ABD LIMITED W/ ELASTOGRAPHY REASON FOR EXAM: Benign liver cyst. COMPARISON: Comparison is made with prior study dated April 18, 2022. TECHNIQUE: Right upper quadrant abdominal ultrasound. [employer] ElastQ Imaging shear wave elastography for non-invasive assessment of liver tissue stiffness. Brenda EPIQ Elite. FINDINGS: LIVER: Size: Unremarkable Length: 17.3 cm Echotexture: Normal Contour: Normal Lesions: None identified the previously seen cyst from prior study is not visualized at this time. Elastography: EQI Med: 8.1 kPa EQI Med Jason: 1.62 m/s IQR/Med: 23 %* GALLBLADDER: Normal COMMON BILE DUCT: Normal it measures 4.4 mm. PANCREAS: Echogenic. Visualized portions of the right kidney are unremarkable. No right upper quadrant ascites. US/ABD Limited w/ Elastography IMPRESSION: MODERATE HEPATIC FIBROSIS Reference Values: SRU <1.37 m/s (5.7kPa): No to mild fibrosis 1.37 m/s - 2.2 m/s: Moderate to severe fibrosis >2.2 m/s (15kPa): Significant fibrosis / cirrhosis METAVIR Score F2 or higher: 1.34 m/s (5.7kPa) F3 or higher: 1.55 m/s (7.3kPa) F4: 1.80 m/s (10kPa) * If the IQR/Med is >30%, the variance in the measurements is a large and the a ccuracy of the measurement may be in question. Reading Location: [id number]
== END | disposition home or self-care (01) ==
LOC: OPBI 08:01
PROVIDERS: PCP Internal Medicine; Referring Provider Internal Medicine; Visit Provider Internal Medicine
DX: Z12.31 Encounter for screening mammogram for malignant neoplasm of breast (principal); K76.89 Other specified diseases of liver
CPT/HCPCS: 76705; 76981; 77063; 77067